=== PATIENT | female | born 1970 | race Two or more races ===

== ENCOUNTER 2022-11-07 15:27 | Emergency (ER) | payer OTHER ==
[~2022-11-07] VITALS: Ht 162.6 cm; Wt 84.9 kg
[2022-11-07 15:53] VITALS: BP 135/59
== END 2022-11-07 16:51 | disposition home or self-care (01) ==
LOC: ER 15:27
DX: S00.03XA Contusion of scalp, initial encounter (principal); Z98.51 Tubal ligation status; W01.0XXA Fall on same level from slipping, tripping and stumbling without subsequent striking against object, initial encounter; Y93.89 Activity, other specified; Y92.89 Other specified places as the place of occurrence of the external cause; Y99.8 Other external cause status
CPT/HCPCS: 70450